=== PATIENT | male | born 1955 | race Caucasian/White ===

== ENCOUNTER → 2023-05-28 | Outpatient (CLI) | payer OTHER, SELFPAY ==
[2023-05-28 12:21] LABS: Absolute Lymphocyte Count 1.84 X10^3/uL (0.83-4.51); Absolute Neutrophil Count 2.8 X10^3/uL (2.0-7.7); Basophil# 0.07 X10^3/uL; Basophil% 1.3 % (0-1); Eosinophil# 0.32 X10^3/uL; Eosinophils% 5.8 % (0-5); Hematocrit 46.2 % (40-54); Hemoglobin 15.3 g/dL (13.0-16.5); Lymphocyte # 1.84 X10^3/ul (0.83-4.51); Lymphocyte % 33.2 % (19-41); Mean Corp Hgb Conc 33.1 g/dL (32-36); Mean Corpuscular Hgb 30.7 pg (27.0-32.0); Mean Corpuscular Volume 92.6 fL (80-94); Mean Platelet Vol. 10.8 fl (6.2-12.0); Monocyte# 0.52 X10^3/uL; Monocyte% 9.4 % (0-10); NRBC Flagged by Analyzer 0 % (0-5); Neutrophil # 2.76 X10^3/uL (2.7-7.7); Neutrophil % 49.8 % (47-70); Platelet Count 223 K/mm3 (150-450); RBC Distribution Width SD 43.7 fl (35.1-43.9); Red Blood Count 4.99 M/mm3 (4.6-6.2); White Blood Count 5.5 K/mm3 (4.4-11.0)
[2023-05-28 13:06] LABS: Hemoglobin A1c 5.9 % (3.8-5.6)
[2023-05-28 13:38] LABS: ALB/GLOB Ratio 1.1 RATIO (0.9-2.4); AST(SGOT) 32 U/L (15-37); Alanine Aminotransfer ALT/SGPT 59 U/L (16-61); Albumin, Serum 3.9 g/dL (3.2-5.0); Alkaline Phosphatase 72 U/L (45-117); Anion Gap 7 (5-15); BUN 17 mg/dL (7-18); BUN/Creat Ratio 14.4 RATIO (10-20); Calcium,Total 9.7 mg/dL (8.5-10.1); Chloride 108 mmol/L (98-107); Cholesterol 183 mg/dL (200); Creatinine, Serum 1.18 mg/dL (0.70-1.30); EST Glomerular Filtration Rate 66 mL/min (>60); Est Glom Filt Rate - Afr Amer 80 mL/min (>60); Globulin 3.5 g/dL (2.2-4.2); Glucose 102 mg/dL (74-106); High Density Lipoprotein 52 mg/dL; Potassium 4.9 mmol/L (3.5-5.1); Protein, Total 7.4 g/dL (6.4-8.2); Sodium Level 139 mmol/L (136-145); Thyroid Stim Hormone (TSH) 2.16 uIU/mL (0.358-3.74); Triglycerides 117 mg/dL; Very Low Density Lipoprotein 23 mg/dL (5-40)
== END | disposition home or self-care (01) ==
LOC: BIMLAB 10:07
PROVIDERS: PCP Internal Medicine; Referring Provider Internal Medicine; Visit Provider Internal Medicine
DX: G47.33 Obstructive sleep apnea (adult) (pediatric) (principal); E66.01 Morbid (severe) obesity due to excess calories; Z68.42 Body mass index [BMI] 45.0-49.9, adult; Z13.6 Encounter for screening for cardiovascular disorders
CPT/HCPCS: 36415; 80053; 80061; 83036; 84443; 85025

== ENCOUNTER → 2023-06-09 | Outpatient (CLI) | payer OTHER, SELFPAY | END | disposition home or self-care (01) | LOC: SL 11:24 | PROVIDERS: PCP Internal Medicine; Referring Provider Internal Medicine; Visit Provider Internal Medicine | DX: G47.33 Obstructive sleep apnea (adult) (pediatric) (principal) | CPT/HCPCS: 95806 ==

== ENCOUNTER → 2023-08-11 | Outpatient (CLI) | payer OTHER, SELFPAY ==
[2023-08-11 12:52] LABS: PSA,Total - Annual Screen 0.33 ng/mL (0.00-4.00)
== END | disposition home or self-care (01) ==
LOC: BIMLAB 07:58
PROVIDERS: PCP Internal Medicine; Visit Provider Internal Medicine
DX: Z80.42 Family history of malignant neoplasm of prostate (principal)
CPT/HCPCS: 36415; 84153; G0103

== ENCOUNTER 2024-04-11 08:26 | Day surgery (SDC) | payer OTHER, SELFPAY ==
--- NOTE | 2024-04-11 08:35 | PCM.PRE.AN2 ---
ASA Classification* ASA Classification ASA Classification: 2 Assessment & Plan Anesthesia* Anesthesia Assessment Anesthesia Assessment: Discussed sedation and/or anesthesia options, risks, benefits, and alternatives with patient/parents/legal guardian/POA. Questions invited. The patient/parents/legal guardian/POA seems to understand and agrees to proceed with anesthesia plan. Reviewed the physical assessment, medical history, allergy history and patient home medications list prior to surgery/procedure/anesthetic and documented any changes. Performed airway and anesthesia risk assessments. Anesthesia Type Anesthesia Type: MAC (see written pre anesthesia record for full assessment) Anesthesia Focused Assessment* Airway Assessment Mouth opens: >3 cm Mallampati Score: II Focused Labs Anesthesia Preop lab: CBC WBC 5.5 K/mm3 (4.4-11.0) 05/28/23 10:08 RBC 4.99 M/mm3 (4.6-6.2) 05/28/23 10:08 Hgb 15.3 g/dL (13.0-16.5) 05/28/23 10:08 Hct 46.2 % (40-54) 05/28/23 10:08 Plt Count 223 K/mm3 (150-450) 05/28/23 10:08 CHEMISTRY Potassium 4.9 mmol/L (3.5-5.1) 05/28/23 10:08 Sodium 139 mmol/L (136-145) 05/28/23 10:08 BUN 17 mg/dL (7-18) 05/28/23 10:08 Creatinine 1.18 mg/dL (0.70-1.30) 05/28/23 10:08 Glucose 102 mg/dL (74-106) 05/28/23 10:08 TSH 2.16 uIU/mL (0.358-3.74) 05/28/23 10:08 COAG Pre-Assessment Diagnosis/Proposed Procedure Planned Operative Procedure(s): CSCOPE OA Anesthesia History Anesthesia History - manufacturing sales representative: Anesthesia History - manufacturing sales representative Hx Hospitalization No 04/06/24 09:31 Any Problems With Anesthesia No 04/06/24 09:31 Cholinesterase deficiency No 04/06/24 09:31 You/Your Family Experience No 04/06/24 09:31 fever (hyperthermia) with Relationship Recent Exposure to Contagious Disease Does patient have nerve No 04/06/24 09:31 stimulator Patient instructed to have device shut off --Does patient have Pacemaker or ICD? When Was Last Pacemaker Check QUESTION #4 FULL TEXT: You/Your Family Experience fever (hyperthermia) with Anesthesia Last Oral Intake Last Oral intake: Last Oral Intake NPO since Meds taken in AM with sips of water? Meds patient instructed to take am of surgery PONV PONV - manufacturing sales representative: PONV - manufacturing sales representative Female No 04/06/24 09:31 HX of Motion Sickness No 04/06/24 09:31 HX of N/V After Surgery No 04/06/24 09:31 Non-Smoker Yes 04/06/24 09:31 Duration of Surgery greater No 04/06/24 09:31 than 60 minutes Number of Risk Factors 1 04/06/24 09:31 PONV Score Low Risk 04/06/24 09:31 Height & Weight Height & Weight: Anesthesia: Height & Weight Height 5 ft 11 in 02/02/24 11:17 Respiratory Assessment Respiratory Assessment - manufacturing sales representative: Respiratory Tract Infection Hx - manufacturing sales representative Hx Respiratory Tract Infection No 04/06/24 09:31 STOP Sleep Apnea STOP Sleep Apnea - manufacturing sales representative: STOP Sleep Apnea - manufacturing sales representative Hx Hypertension No 04/06/24 09:31 Hx Sleep Apnea Yes 04/06/24 09:31 CPAP Yes: NON COMPLIANT 04/06/24 09:31 BIPAP No 04/06/24 09:31 Do you snore loudly (louder Yes 04/06/24 09:31 than talking or can be heard Do you often feel tired/ No 04/06/24 09:31 fatigued/ sleepy during daytime? Has anyone observed you stop No 04/06/24 09:31 breathing during sleep? STOP Results Positive 04/06/24 09:31 QUESTION #5 FULL TEXT : Do you snore loudly (louder than talking or can be heard through closed doors)? Tobacco Use History Tobacco Use History - manufacturing sales representative: Tobacco Use History - manufacturing sales representative Tobacco Use Smoking Status Never smoker 04/06/24 09:31 Hx Tobacco Use No 04/06/24 09:31 Years Smoking Packs Smoked per Day Smoking Cessation Date was within the last 15 years Hx Smoking Cessation Date Hx Smoking Cessation Counseling Hematologic Medial History Hematologic Hx - manufacturing sales representative: Hematologic Medical Hx - linux admin engineer Hx of Blood Transfusion No 04/06/24 09:31 Hx of Transfusion in last 3 No 04/06/24 09:31 Months Date of Last Transfusion (if within last 3 months) Ever experience any problems No 04/06/24 09:31 with transfusion(s)? Specify any problems Hx of Preganancy in last 3 N/A 04/06/24 09:31 Months Nurse Filling Out Transfusion DSCHRIBER 04/06/24 09:31 & Questions: Date: 04/06/24 04/06/24 09:31 Time: 09:33 04/06/24 09:31 Patient unable to answer at this time (ie. confused, unrespo /Reproduction History /Reproductive History - manufacturing sales representative: /Reproductive Hx- manufacturing sales representative Hx Now No 04/06/24 09:31 Gestational Age (in weeks): EDC: Hx Hx Para Hx Section SAB No 04/06/24 09:31 Active Medications Active Medications: Current Medications Generic Name Dose Route Start Last Admin Trade Name Freq PRN Reason Stop Dose Admin Lactated Ringer's 1,000 mls @ 15 mls/hr 04/11/24 08:45 IV .Q48H AUTUMN PFSH Medical History (Updated 04/06/24 @ 09:37 by Chantell Mc) Wears glasses Alcohol use Back pain CPAP (continuous positive airway pressure) dependence Non-smoker Shortness of breath on exertion Leg cramps History of pain when walking Cardiology follow-up encounter History of echocardiogram History of stress test Gout Back problem Arthritis Chest pain Abnormal electrocardiogram [ECG] [EKG] Home Medications ?Medication ?Instructions ?Recorded ?Last Taken ?Type NK 02/02/24 Unknown History Allergy/AdvReac Type Severity Reaction Status Date / Time No Known Allergies Allergy Verified 04/06/24 09:31 Family History Father CAD (coronary artery disease) Hx CABG Diabetes Hypertension Myocardial infarction Cancer PROSTATE Sister Melanoma Mother Melanoma Surgical History (Updated 02/02/24 @ 11:20 by Shayy Bach) Hx of colonoscopy Total knee replacement status History of arthroscopy of right knee History of vasectomy Social History household members: spouse current occupational status: employed 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
[2024-04-11 08:48] VITALS: BP 145/92; PULSE 59; RESP 16; TEMP 36.6; O2SAT 97; BMI 44.2
[2024-04-11] MEDS: Lactated Ringers 1,000 ML 15 ML IV (08:50)
--- NOTE | 2024-04-11 09:24 | H&P.OPEN ---
HPI - General HPI Narrative ROMERO KRISHNAN, is a 68 M who presents for screening colonoscopy. The patient denies abdominal pain or blood in the stool. His last colonoscopy 16 years ago was normal. Patient denies any family history of colon cancer. [facility] Medical History (Updated 04/06/24 @ 09:37 by Chantell Mc) Wears glasses Alcohol use Back pain CPAP (continuous positive airway pressure) dependence Non-smoker Shortness of breath on exertion Leg cramps History of pain when walking Cardiology follow-up encounter History of echocardiogram History of stress test Gout Back problem Arthritis Chest pain Abnormal electrocardiogram [ECG] [EKG] Home Medications ?Medication ?Instructions ?Recorded ?Last Taken ?Type NK 02/02/24 Unknown History Allergy/AdvReac Type Severity Reaction Status Date / Time No Known Allergies Allergy Verified 04/11/24 08:48 Family History Father CAD (coronary artery disease) Hx CABG Diabetes Hypertension Myocardial infarction Cancer PROSTATE Sister Melanoma Mother Melanoma Surgical History (Updated 02/02/24 @ 11:20 by Shayy Bach) Hx of colonoscopy Total knee replacement status History of arthroscopy of right knee History of vasectomy Social History household members: spouse current occupational status: employed current occupation: [employer] Smoking Status: Never smoker Smokeless tobacco user: chewing tobacco Electronic Cigarette Use: not used alcohol intake: current alcohol intake frequency: a few times a month Alcohol type: beer and hard liquor substance use type: does not use caffeine: Yes Type: coffee what type of physical activity do you participate in: none seatbelt use: always do you feel safe at home: Yes Past Medical/Surgical History Planned Operation Planned Operative Procedure(s): CSCOPE OA Previous Hospitalizations/Surgeries HX Hospitalizations: No Any Problems With Anesthesia: No You/Your Family Experience Fever (Hyperthermia) With Anes: No Cholinesterase deficiency: No Cardiovascular Hx Hypertension: No Respiratory Hx Sleep Apnea: Yes CPAP: Yes (NON COMPLIANT) BIPAP: No Hx Respiratory Tract Infection/Cold (presently): No Do You Snore Loudly (louder than talking or can be heard): Yes Do You Often Feel Tired/ Fatigued/ Sleepy Dring Daytime?: No Has Anyone Observed You Stop Breathing During Sleep?: No Result (for STOP score): Positive Smoking Status: Never smoker Neurological Does patient have nerve stimulator: No Reproduction : No Miscellaneous Recent Exposure to Contagious Disease: No Allergies No Known Allergies Allergy (Verified 04/11/24 08:48) Discharge Is Pt Admitted From a Penitentiary, or a Mcfp: No After D/C, Where Do you Plan to Go: Return Home Vital Signs Vital Signs Vital Signs: 04/11/24 08:48 04/11/24 08:48 Temperature 97.8 F Temperature Source Temporal Pulse Rate 59 L Respiratory Rate 16 Respiratory Pattern Normal Blood Pressure 145/92 H Blood Pressure Mean 109 Blood Pressure Source Monitor Blood Pressure Position Semi-Fowlers Blood Pressure Location Right Arm Pulse Ox 97 Oxygen Delivery Method Room Air Weight Weight: 326 lb 4.546 oz Body Mass Index (BMI) 44.2 Physical Exam Const alert and oriented x3 HEENT normocephalic Eyes PERRL Resp normal respiratory effort and normal air movement Cardio regular rate and regular rhythm GI soft to palpation, non-tender and non-distended Extremity normal to inspection Assessment & Plan Assessment/Plan (1) Encounter for screening for malignant neoplasm of colon: PLAN: I explained endoscopy in detail to the patient. I explained the risks including but not limited to stroke or heart attack with anesthesia, perforation of the GI tract, bleeding, infection. I explained that any of these could necessitate further emergency surgery. The patient understands and all questions were answered sufficiently. The patient wishes to proceed with procedure. Veto Hernandez MD Pager: [facility] [address] [place] [address], [address] [place] [address] Office: Surgery Risks - Colonoscopy Risks Include but are not Limited To: Risks include but are not limited to: Bleeding, perforation requiring further surgery, inability to complete colonoscopy requiring barium enema.
--- NOTE | 2024-04-11 09:49 | PCM.POST.ANE ---
Anesthesia: Postop Eval I Current Vital Signs Temperature: 97.6 F Pulse Rate: 81 Blood Pressure: 121/84 Respiratory Rate: 20 Pulse Ox: 95 Oxygen Delivery Method: Room Air Assessment Airway patent: Yes Spontaneous unlabored respirations: Yes Mental status: Awake and Calm nausea: No Vomiting: No Anesthesia Complication: No Fluid Hydration Crystalloid volume administer (ml): -300 Total IV fluid infused: -300 Progress Note Anesthesia document: Postop Eval 1 completed: Yes
[2024-04-11 09:51] VITALS: BP 121/84; PULSE 81; RESP 20; TEMP 36.4; O2SAT 95
--- NOTE | 2024-04-11 09:52 | OP.COLON_ITS ---
Patient Name: Benito Herrera Procedure Date: 04/11/2024 9:31 AM Date of : 1955 Age: 68 Procedure: Colonoscopy Indications: Screening for colorectal malignant neoplasm Providers: Veto Hernandez MD Referring MD: Abby Lugo Md Medicines: Propofol per Anesthesia Patient Profile: This is a 68 year old male. Refer to note in patient chart for documentation of history and physical. Last Colonoscopy: more than 10 years ago. Complications: No immediate complications. Procedure: Pre-Anesthesia Assessment: - Prior to the procedure, a History and Physical was performed, and patient medications and allergies were reviewed. The patient's tolerance of previous anesthesia was also reviewed. The risks and benefits of the procedure and the sedation options and risks were discussed with the patient. All questions were answered, and informed consent was obtained. Prior Anticoagulants: The patient has taken no anticoagulant or antiplatelet agents. After reviewing the risks and benefits, the patient was deemed in satisfactory condition to undergo the procedure. After I obtained informed consent, the scope was passed under direct vision. Throughout the procedure, the patient's blood pressure, pulse, and oxygen saturations were monitored continuously. The colonoscope was introduced through the anus and advanced to the cecum, identified by appendiceal orifice and ileocecal valve. The colonoscopy was performed without difficulty. The patient tolerated the procedure well. The quality of the bowel preparation was good. The ileocecal valve, appendiceal orifice, and rectum were photographed. Scope In: 9:37:55 AM Scope Withdrawal Time 0 hours 6 minutes 15 seconds Scope Out: 9:49:49 AM Total Procedure Duration Time 0 hours 11 minutes 54 seconds Findings: The entire examined colon appeared normal on direct and retroflexion views. Impression: - The entire examined colon is normal on direct and retroflexion views. - No specimens collected. Recommendation: - Discharge patient to home. - Resume previous diet. - Continue present medications. - Repeat colonoscopy in 10 years for screening purposes. Procedure Code(s): --- Professional --- 42551, Colonoscopy, flexible; diagnostic, including collection of specimen(s) by brushing or washing, when performed (separate procedure) Diagnosis Code(s): --- Professional --- Z12.11, Encounter for screening for malignant neoplasm of colon CPT copyright 2021 [employer]. All rights reserved. The codes documented in this report are preliminary and upon electric accounting machine operator review may be revised to meet current compliance requirements. Veto Hernandez MD 04/11/2024 9:52:13 AM This report has been signed electronically. Number of Addenda: 0 Note Initiated On: 04/11/2024 9:31 AM
--- NOTE | 2024-04-11 09:52 | OP.CCLET_ITS ---
04/11/2024 Abby Lugo Md Re : Colonoscopy procedure for Benito Herrera [place] This procedure was performed on Thursday, April 11, 2024. My impressions and recommendations are as follows: Impressions : - The entire examined colon is normal on direct and retroflexion views. - No specimens collected. Recommendations : - Discharge patient to home. - Resume previous diet. - Continue present medications. - Repeat colonoscopy in 10 years for screening purposes. My findings are described in the full procedure note, which is enclosed. If I can be of further assistance, please feel free to contact me at Doctor phone number(s): , Work: . Sincerely, Veto Hernandez MD 04/11/2024 9:52:13 AM This report has been signed electronically.
[2024-04-11 09:53] VITALS: BP 124/81; BP 145/92; PULSE 69; RESP 16; TEMP 36.1; O2SAT 96
[2024-04-11 10:00] VITALS: BP 121/78; BP 145/92; PULSE 64; RESP 16; O2SAT 96
[2024-04-11 10:05] VITALS: BP 128/83; BP 145/92; PULSE 61; RESP 16; O2SAT 95
[2024-04-11 10:10] VITALS: BP 130/79; BP 145/92; PULSE 64; RESP 16; TEMP 35.5; O2SAT 95
--- NOTE | 2024-04-11 10:17 | POSTOPAN2_ITS ---
Anesthesia Postop Eval I Sum Postop Eval Completion status Anesthesia document: Postop Eval 1 completed: Yes Anesthesia Postop Eval I Summary Anesthesia Postop Eval I Summary: Anesthesia Postop Eval I: Assessment Summary Airway patent Yes 04/11/24 09:51 [email or web address] Spontaneous unlabored Yes 04/11/24 09:51 [email or web address] respirations Mental status Awake,Calm 04/11/24 09:51 [email or web address] nausea No 04/11/24 09:51 LOBSTERMAN.SCHR Vomiting No 04/11/24 09:51 LOBSTERMAN.SCHR Anesthesia Postop Eval I: Fluid Summary Crystalloid volume administer -300 04/11/24 09:51 [email or web address].SCHR (ml) Colloids volume administered ( ml) Blood Product volume administered (ml) Total IV fluid infused -300 04/11/24 09:51 [email or web address].SCHR Anesthesia Postop Eval I: Summary Notes Anesthesia Complication No 04/11/24 09:51 [email or web address] Anesthesia Complication Comment: Post-operative progress note Anesthesia: Postop Eval II Evaluation Mental status: Awake Pain Level: 0 nausea: No Vomiting: No
--- NOTE | 2024-04-11 10:17 | PCM.POSTANE2 ---
Anesthesia Postop Eval I Sum Postop Eval Completion status Anesthesia document: Postop Eval 1 completed: Yes Anesthesia Postop Eval I Summary Anesthesia Postop Eval I Summary: Anesthesia Postop Eval I: Assessment Summary Airway patent Yes 04/11/24 09:51 ROLL FORMING MACHINE OPERATOR.SCHR Spontaneous unlabored Yes 04/11/24 09:51 ROLL FORMING MACHINE OPERATOR.SCHR respirations Mental status Awake,Calm 04/11/24 09:51 ROLL FORMING MACHINE OPERATOR.SCHR nausea No 04/11/24 09:51 ROLL FORMING MACHINE OPERATOR.SCHR Vomiting No 04/11/24 09:51 ROLL FORMING MACHINE OPERATOR.SCHR Anesthesia Postop Eval I: Fluid Summary Crystalloid volume administer -300 04/11/24 09:51 ROLL FORMING MACHINE OPERATOR.SCHR (ml) Colloids volume administered ( ml) Blood Product volume administered (ml) Total IV fluid infused -300 04/11/24 09:51 ROLL FORMING MACHINE OPERATOR.SCHR Anesthesia Postop Eval I: Summary Notes Anesthesia Complication No 04/11/24 09:51 ROLL FORMING MACHINE OPERATOR.[facility] Anesthesia Complication Comment: Post-operative progress note Anesthesia: Postop Eval II Evaluation Mental status: Awake Pain Level: 0 nausea: No Vomiting: No
== END 2024-04-11 10:37 | disposition home or self-care (01) ==
LOC: EN 08:27 → AC 08:28
PROVIDERS: PCP Internal Medicine; Referring Provider Internal Medicine; Visit Provider Surgery
PROC: 0DJD8ZZ Inspection of Lower Intestinal Tract, Via Natural or Artificial Opening Endoscopic (ICD-10-PCS; CPT 45378; principal; 2024-04-11 09:25)
DX: Z12.11 Encounter for screening for malignant neoplasm of colon (principal); Z96.651 Presence of right artificial knee joint; Z98.52 Vasectomy status
CPT/HCPCS: 45378; J7120

== ENCOUNTER → 2024-07-28 | Outpatient (CLI) | payer OTHER, SELFPAY ==
[2024-07-28 12:26] LABS: Absolute Lymphocyte Count 1.98 X10^3/uL (0.83-4.51); Absolute Neutrophil Count 2.6 X10^3/uL (2.0-7.7); Basophil# 0.06 X10^3/uL; Basophil% 1.1 % (0-1); Eosinophil# 0.31 X10^3/uL; Eosinophils% 5.5 % (0-5); Hematocrit 44.6 % (40-54); Hemoglobin 14.4 g/dL (13.0-16.5); Lymphocyte # 1.98 X10^3/ul (0.83-4.51); Lymphocyte % 35.4 % (19-41); Mean Corp Hgb Conc 32.3 g/dL (32-36); Mean Corpuscular Volume 92.9 fL (80-94); Mean Platelet Vol. 10.5 fl (6.2-12.0); Monocyte# 0.66 X10^3/uL; Monocyte% 11.8 % (0-10); NRBC Flagged by Analyzer 0 % (0-5); Neutrophil # 2.55 X10^3/uL (2.7-7.7); Neutrophil % 45.5 % (47-70); Platelet Count 240 K/mm3 (150-450); RBC Distribution Width CV 12.8 % (11.6-14.6); RBC Distribution Width SD 43.8 fl (35.1-43.9); White Blood Count 5.6 K/mm3 (4.4-11.0)
[2024-07-28 12:44] LABS: Hemoglobin A1c 5.8 % (3.8-5.6)
[2024-07-28 12:57] LABS: ALB/GLOB Ratio 1.1 RATIO (0.9-2.4); AST(SGOT) 34 U/L (15-37); Alanine Aminotransfer ALT/SGPT 56 U/L (16-61); Albumin, Serum 3.7 g/dL (3.2-5.0); Alkaline Phosphatase 72 U/L (45-117); Anion Gap 5 (5-15); BUN 18 mg/dL (7-18); BUN/Creat Ratio 16.8 RATIO (10-20); Calcium,Total 9.4 mg/dL (8.5-10.1); Chloride 108 mmol/L (98-107); Cholesterol 184 mg/dL (200); Creatinine, Serum 1.07 mg/dL (0.70-1.30); EST Glomerular Filtration Rate 73 mL/min (>60); Est Glom Filt Rate - Afr Amer 89 mL/min (>60); Globulin 3.3 g/dL (2.2-4.2); Glucose 112 mg/dL (74-106); High Density Lipoprotein 55 mg/dL; Potassium 4.6 mmol/L (3.5-5.1); Sodium Level 137 mmol/L (136-145); Triglycerides 95 mg/dL; Very Low Density Lipoprotein 19 mg/dL (5-40)
== END | disposition home or self-care (01) ==
LOC: BIMLAB 08:26
PROVIDERS: PCP Internal Medicine; Referring Provider Internal Medicine; Visit Provider Internal Medicine
DX: Z00.00 Encounter for general adult medical examination without abnormal findings (principal); G47.33 Obstructive sleep apnea (adult) (pediatric); R73.03 Prediabetes; Z13.6 Encounter for screening for cardiovascular disorders
CPT/HCPCS: 36415; 80053; 80061; 83036; 85025

== ENCOUNTER → 2025-09-01 | Outpatient (CLI) | payer OTHER, SELFPAY ==
[2025-09-01 08:57] LABS: Hematocrit 45.0 % (40-54); Hemoglobin 14.6 g/dL (13.0-16.5); Immature Granulocytes Count 0.020 X10^3/uL (0.0-0.0); Mean Corp Hgb Conc 32.4 g/dL (32-36); Mean Corpuscular Volume 92.6 fL (80-94); Mean Platelet Vol. 10.2 fl (6.2-12.0); NRBC Flagged by Analyzer 0 % (0-5); Platelet Count 236 K/mm3 (150-450); RBC Distribution Width CV 13.0 % (11.6-14.6); RBC Distribution Width SD 43.8 fl (35.1-43.9); Red Blood Count 4.86 M/mm3 (4.6-6.2); White Blood Count 5.7 K/mm3 (4.4-11.0)
[2025-09-01 09:30] LABS: AST(SGOT) 32 U/L (<=37); Alanine Aminotransfer ALT/SGPT 48 U/L (<=46); Albumin, Serum 4.3 g/dL (3.4-4.8); Alkaline Phosphatase 72 U/L (40-129); Anion Gap 10 (5-15); BUN 22 mg/dL (4-19); BUN/Creat Ratio 20.1 RATIO (10-20); Calcium,Total 9.5 mg/dL (7.6-11.0); Carbon Dioxide 24.2 mmol/L (21.0-32.0); Chloride 107 mmol/L (98-108); Cholesterol 181 mg/dL (<=200); Globulin 2.6 g/dL (2.2-4.2); Glucose 108 mg/dL (70-99); Low Density Lipoprotein Calc. 117 mg/dL; PSA,Total - Annual Screen 0.30 ng/mL (0.02-4.00); Potassium 5.2 mmol/L (3.3-5.1); Triglycerides 62 mg/dL; Very Low Density Lipoprotein 12 mg/dL (5-40); cholesterol:hdl ratio screen 3.50
== END | disposition home or self-care (01) ==
LOC: LAB 07:57
PROVIDERS: PCP Internal Medicine; Referring Provider Internal Medicine; Visit Provider Internal Medicine
DX: Z12.5 Encounter for screening for malignant neoplasm of prostate (principal); E66.01 Morbid (severe) obesity due to excess calories; Z68.42 Body mass index [BMI] 45.0-49.9, adult; R73.03 Prediabetes; G47.33 Obstructive sleep apnea (adult) (pediatric); N52.9 Male erectile dysfunction, unspecified
CPT/HCPCS: 36415; 80053; 80061; 83036; 84153; 84402; 84443; 85025; G0103